=== PATIENT | female | born 1960 | race Caucasian/White ===

== ENCOUNTER 2019-02-15 09:49 | Inpatient (IN) | payer OTHER ==
[~2019-02-15] VITALS: Ht 172.7 cm; Wt 72.7 kg
--- NOTE | ~2019-02-15 | PROC ---
[address] [address] PROCEDURE REPORT Name: EDIE RAPHAEL Room: [address] IN ..#: [id number] Admission: 02/15/19 Attend Phys: Darrian Beltran MD Discharge: 02/17/19 Date of : 62 Report #: [id number] THIS REPORT FOR: //name// For GI report, please see the Provation report in Perceptive 7 content. By: [id number] Records Staff MEGHANA /STEPHEN
[2019-02-15 09:53] VITALS: BP 150/78
[2019-02-15] MEDS ORDERED: KLOR-CON 1010 MEQ PO (09:58)
[2019-02-15] MEDS ORDERED: ESTRADIOL 1 MG T1 M1 PO (09:58)
[2019-02-15] MEDS ORDERED: ZANAFLEX2 M1 PO (09:59)
[2019-02-15] MEDS ORDERED: NORCO 10-325 T1 EACH PO (09:59)
[2019-02-15 10:14] LABS: ABSOLUTE BASOPHILS 0.1 thou/uL (0.0-0.2); ABSOLUTE EOSINOPHILS 0.1 thou/uL (0.0-0.7); ABSOLUTE LYMPHOCYTES 4.4 thou/uL (0.8-5.3); ABSOLUTE MONOCYTES 1.2 thou/uL (0.0-1.2); ABSOLUTE NEUTROPHILS 8.9 thou/uL (1.6-8.1); BASOPHILS 0.4 %; EOSINOPHILS 0.6 %; HEMATOCRIT 30.8 % (37.0-47.0); HEMOGLOBIN 10.4 gm/dL (12.0-15.0); LYMPHOCYTES 29.7 %; MCHC 33.8 g/dL (28.0-37.0); MCV 94.7 fL (80.0-100.0); MONOCYTES 8.4 %; MPV 8.2 fl. (7.2-11.1); NUCLEATED RBCS 0 /100WBC; PLATELET COUNT* 337 thou/uL (150-400); POLYS 60.9 %; RBC 3.25 mil/uL (4.20-5.00); RDW-CV 13.1 % (10.5-14.5); WBC 14.7 thou/uL (4.0-11.0)
[2019-02-15 10:27] LABS: ALBUMIN 4.3 g/dL (3.4-5.0); ALKALINE PHOSPHATASE 52 U/L (46-116); ANION GAP 11 mmol/L (7-16); BUN 42 mg/dL (7-18); CALCIUM 9.1 mg/dL (8.5-10.1); CHLORIDE 102 mmol/L (98-107); CO2 26 mmol/L (21-32); CREATININE 0.9 mg/dL (0.6-1.3); GLUCOSE 153 mg/dL (70-99); LIPASE 97 U/L (73-393); POTASSIUM 3.6 mmol/L (3.5-5.1); SGOT 12 U/L (15-37); SGPT 18 U/L (30-65); SODIUM 139 mmol/L (136-145); TOTAL BILIRUBIN 0.2 mg/dL (<0.1-1.0); TOTAL PROTEIN 7.7 g/dL (6.4-8.2); TROPONIN-I LEVEL <0.06 ng/mL (<0.06)
[2019-02-15 10:41] LABS: APTT 20.8 Seconds (25.0-31.3); PROTIME 10.1 Seconds (9.20-11.50)
[2019-02-15 12:06] VITALS: BP 129/67
[2019-02-15 12:35] VITALS: BP 119/68
[2019-02-15 14:26] LABS: HEMATOCRIT 25.4 % (37.0-47.0); HEMOGLOBIN 8.6 gm/dL (12.0-15.0)
[2019-02-15 15:23] VITALS: BP 146/73
--- NOTE | 2019-02-15 15:31 | EKG ---
[place] [address] ELECTROCARDIOGRAM REPORT Name: SANDRANANCIEEDIE Lynn Room: [address] ADM IN 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
[2019-02-15 16:17] LABS: HEMATOCRIT 23.8 % (37.0-47.0)
[2019-02-15 18:12] LABS: URINE BILIRUBIN NEGATIVE (Negative); URINE BLOOD TRACE (Negative); URINE CLARITY CLEAR; URINE COLOR YELLOW; URINE GLUCOSE-RANDOM NEGATIVE (Negative); URINE KETONES NEGATIVE (Negative); URINE LEUKOCYTES-REFLEX NEGATIVE (Negative); URINE NITRITE-REFLEX NEGATIVE (Negative); URINE PROTEIN NEGATIVE (Negative); URINE UROBILINOGEN 0.2 E.U./dl (0.2-1.0)
[2019-02-15 20:00] VITALS: BP 128/56
[2019-02-15 20:32] LABS: ABSOLUTE BASOPHILS 0.1 thou/uL (0.0-0.2); ABSOLUTE EOSINOPHILS 0.1 thou/uL (0.0-0.7); ABSOLUTE LYMPHOCYTES 3.1 thou/uL (0.8-5.3); ABSOLUTE MONOCYTES 0.8 thou/uL (0.0-1.2); ABSOLUTE NEUTROPHILS 6.6 thou/uL (1.6-8.1); BASOPHILS 0.5 %; EOSINOPHILS 0.8 %; HEMATOCRIT 21.2 % (37.0-47.0); HEMOGLOBIN 7.1 gm/dL (12.0-15.0); MCH 31.8 pg (26.0-34.0); MCHC 33.5 g/dL (28.0-37.0); MCV 94.9 fL (80.0-100.0); MONOCYTES 7.8 %; MPV 8.3 fl. (7.2-11.1); NUCLEATED RBCS 0 /100WBC; POLYS 61.9 %; RBC 2.24 mil/uL (4.20-5.00); RDW-CV 12.8 % (10.5-14.5); WBC 10.7 thou/uL (4.0-11.0)
[2019-02-15 20:38] LABS: CALCIUM 8.2 mg/dL (8.5-10.1); CREATININE 0.7 mg/dL (0.6-1.3); POTASSIUM 3.5 mmol/L (3.5-5.1)
[2019-02-15 20:40] LABS: PLATELET COUNT* 219 thou/uL (150-400)
[2019-02-16 00:06] VITALS: BP 103/49
[2019-02-16 03:37] VITALS: BP 111/29; BP 119/60
[2019-02-16 05:02] LABS: MCH 32.4 pg (26.0-34.0); MCHC 34.2 g/dL (28.0-37.0); MCV 94.7 fL (80.0-100.0); MPV 8.5 fl. (7.2-11.1); RBC 1.96 mil/uL (4.20-5.00); WBC 6.8 thou/uL (4.0-11.0)
[2019-02-16 05:23] LABS: CALCIUM 8.1 mg/dL (8.5-10.1); CREATININE 0.6 mg/dL (0.6-1.3); MAGNESIUM 1.9 mg/dL (1.8-2.4); POTASSIUM 3.7 mmol/L (3.5-5.1)
[2019-02-16 05:46] LABS: HEMOGLOBIN 6.3 gm/dL (12.0-15.0)
[2019-02-16 05:47] LABS: HEMATOCRIT 18.5 % (37.0-47.0)
[2019-02-16 12:04] LABS: ABSOLUTE EOSINOPHILS 0.1 thou/uL (0.0-0.7); ABSOLUTE LYMPHOCYTES 2.3 thou/uL (0.8-5.3); ABSOLUTE MONOCYTES 0.7 thou/uL (0.0-1.2); ABSOLUTE NEUTROPHILS 4.5 thou/uL (1.6-8.1); BASOPHILS 0.5 %; EOSINOPHILS 0.7 %; HEMATOCRIT 24.5 % (37.0-47.0); HEMOGLOBIN 8.4 gm/dL (12.0-15.0); LYMPHOCYTES 29.9 %; MCH 31.9 pg (26.0-34.0); MCHC 34.4 g/dL (28.0-37.0); MCV 92.5 fL (80.0-100.0); MONOCYTES 8.9 %; MPV 7.7 fl. (7.2-11.1); NUCLEATED RBCS 0 /100WBC; PLATELET COUNT* 198 thou/uL (150-400); RBC 2.65 mil/uL (4.20-5.00); RDW-CV 14.3 % (10.5-14.5); WBC 7.6 thou/uL (4.0-11.0)
[2019-02-16 12:19] LABS: CALCIUM 8.5 mg/dL (8.5-10.1); CREATININE 0.6 mg/dL (0.6-1.3); POTASSIUM 3.6 mmol/L (3.5-5.1)
[2019-02-16 12:21] VITALS: BP 142/67
[2019-02-16 14:13] LABS: HEMATOCRIT 23.2 % (37.0-47.0)
[2019-02-16 15:55] VITALS: BP 152/83
[2019-02-16 17:57] LABS: HEMATOCRIT 24.5 % (37.0-47.0); HEMOGLOBIN 8.5 gm/dL (12.0-15.0)
[2019-02-16 20:00] VITALS: BP 149/53
[2019-02-17] VITALS: BP 120/50
[2019-02-17 04:00] VITALS: BP 126/63
[2019-02-17 07:23] LABS: ABSOLUTE EOSINOPHILS 0.1 thou/uL (0.0-0.7); ABSOLUTE LYMPHOCYTES 2.3 thou/uL (0.8-5.3); ABSOLUTE MONOCYTES 0.8 thou/uL (0.0-1.2); ABSOLUTE NEUTROPHILS 5.8 thou/uL (1.6-8.1); BASOPHILS 0.5 %; EOSINOPHILS 1.3 %; HEMATOCRIT 24.5 % (37.0-47.0); HEMOGLOBIN 8.4 gm/dL (12.0-15.0); LYMPHOCYTES 25.6 %; MCH 31.9 pg (26.0-34.0); MCHC 34.5 g/dL (28.0-37.0); MCV 92.5 fL (80.0-100.0); MONOCYTES 8.9 %; MPV 7.8 fl. (7.2-11.1); NUCLEATED RBCS 0 /100WBC; PLATELET COUNT* 204 thou/uL (150-400); POLYS 63.7 %; RBC 2.64 mil/uL (4.20-5.00); RDW-CV 14.1 % (10.5-14.5); WBC 9.1 thou/uL (4.0-11.0)
[2019-02-17 07:36] LABS: CALCIUM 8.8 mg/dL (8.5-10.1); CREATININE 0.6 mg/dL (0.6-1.3); POTASSIUM 3.2 mmol/L (3.5-5.1)
[2019-02-17 08:00] VITALS: BP 135/56
[2019-02-17] MEDS ORDERED: VOLTAREN GEL 1100 G1 TOP (09:19)
[2019-02-17] MEDS ORDERED: NORCO 10-325 T1 EACH PO (09:19)
[2019-02-17] MEDS ORDERED: OMEPRAZOLE40 MG PO (09:19)
[2019-02-17 09:45] VITALS: BP 135/56
--- NOTE | 2019-02-17 15:06 | PATH ---
[address] [address] PATHOLOGY RPT PROCEDURE Name: EDIE GARRIDO Room: [address] IN [facility]#: [id number] Admission: 02/15/19 Date of : 62 Discharge: Report #: [id number] Path Case #: [id number] [facility] Accession Number: [id number] . 01 Material submitted: . stomach - ANTRAL BIOPSY . 01 Clinical history: . Rule out H. pylori, gastric ulcers x4 . 02 Diagnosis: Antral biopsy: - Mild nonspecific chronic antral gastritis, negative for Helicobacter pylori organisms and dysplasia. (VAHE:diandra; 02/17/2019) MBR/02/17/2019 . 02 Electronically signed: . Vikas Cochran MD, Pathologist NPI- [id number] . 01 Gross description: . Received in formalin labeled "Patricia Garridoly, antral BX, rule out H. pylori," is a single segment of ortega soft tissue measuring 0.5 cm in maximum dimension. The specimen is entirely submitted in cassette A1. (TSD; 02/16/2019) TOB/TOB . 02 Pathologist provided ICD-10: K29.50 . 02 CPT . 861424 Specimen Comment: A courtesy copy of this report has been sent to Specimen Comment: [phone], , . Specimen Comment: Report sent to ,DR LANDIS / DR TORO Performed at: [address] [facility] [address], [place], [place] [id number] MD Manuel Rdz MD Phone: [phone] Performed at: [address] [facility] [address] [facility] , [place], [place] [id number] MD Vikas Cochran MD Phone: [phone]
[2019-02-17 16:00] VITALS: BP 110/54
--- NOTE | 2019-02-22 15:46 | CON ---
[address] [address] CONSULTATION Name: EDIE RAPHAEL Room: [address] IN M.R.#: [id number] Admission: 02/15/19 Attend Phys: Washington Beltran MD Discharge: 02/17/19 Date of : 62 Report #: [id number] THIS REPORT FOR: //name// CC: WASHINGTON Beltran Natalie Everardo DATE OF SERVICE: 02/15/2019 REFERRING PHYSICIAN: Washington Beltran MD. REASON FOR CONSULTATION: 1. Probable GI bleed. 2. Melena associated with lightheadedness and dizziness compatible with orthostasis -- suspect upper gastrointestinal bleed. 3. Recent shoulder injury from lifting a patient, requiring the use of nonsteroidals in the form of ibuprofen and recently a Medrol Dosepak. 4. with no previous colonoscopy in the past. 5. Recent shoulder injury secondary to the same requiring treatment. RECOMMENDATIONS: 1. At the present time, the patient appears to be hemodynamically stable to undergo endoscopic evaluation. We will proceed with upper endoscopy tomorrow and make further recommendations thereafter. In the interim, we will continue the patient on Protonix through IV. We will check laboratory test to ensure she is not iron deficient as this may have been something that has been going on for a while. 2. Eventually, she will need a colonoscopy as well, but it may be in a few months if we find ulcers that need to repeat upper endoscopy to evaluate for healing. I have discussed the plans with the patient as well, and she is agreeable to the same. 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 She has also had some mild dyspepsia. She denies any dysphagia, odynophagia, postprandial pain or problems normally with her bowels or bowel frequency. She had recently injured her shoulder after lifting a heavy patient and started taking ibuprofen 800 mg 3 times daily for the last 10 days. When she was not getting better, she was placed on a Medrol Dosepak, and this may have tipped everything over. She has never had any previous studies of her upper and lower GI tract in the past. She has otherwise been extremely healthy. ALLERGIES: [place] [address] CONSULTATION Name: EDIE RAPHAEL Room: [address]#: [id number] Admission: 02/15/19 Attend Phys: Washington Beltran MD Discharge: 02/17/19 Date of : 62 Report #: [id number] MEDICATIONS: At home are estradiol, potassium, [place] recently and tizanidine. PAST SURGICAL HISTORY: Remarkable for previous breast reduction. She had hysterectomy as well. SOCIAL HISTORY: The patient does smoke cigarettes. She does not drink any alcohol. No recreational drugs. PHYSICAL EXAMINATION: GENERAL: A pleasant 58-year-old white female who is awake and alert. CARDIOPULMONARY: Revealed a regular rate and rhythm. LUNGS: Clear. ABDOMEN: Soft and not tender. No rebound or guarding noted. LABORATORY DATA: From admission revealed white count 14.7, hemoglobin 10.4, platelet count 337,000. Her MCV is 94.7 and RDW 13.1. Her sodium 139, potassium 3.6, chloride 102, bicarbonate 26, BUN 42, creatinine 0.9. Her ratio is close to 40. Total bilirubin 0.2, alkaline phosphatase 52, AST is 12, ALT is 18. Her albumin is 4.3. With hydration, her hemoglobin has come down to 8.0 [address] of [address] scan of the abdomen and pelvis revealed moderate amount of stool within the colon with no evidence to suggest active bleeding. DISCUSSION: At the present time, the patient has had some GI bleeding with melena. She has been taking lot of nonsteroidals and this likely is the source for her bleeding. We will proceed with upper endoscopy tomorrow and make further recommendations thereafter. I have discussed the plans with the patient as well and she is agreeable to the same. <ELECTRONICALLY SIGNED> By: Oliver Reyez DO 02/22/19 1546 [id number] Reyez DO /nt
== END 2019-02-17 17:07 | disposition home or self-care (01) | DRG 378 ==
LOC: M.ERS 09:49 → M.2W 11:32 → M.TBA-ER 11:32 → M.2W 11:32
PROVIDERS: Family Medicine; Internal Medicine Gastroenterology; ADMIT Internal Medicine
PROC: 3E0U33Z Introduction of Anti-inflammatory into Joints, Percutaneous Approach (ICD-10-PCS; principal; 2019-02-15)
PROC: 0DB68ZX Excision of Stomach, Via Natural or Artificial Opening Endoscopic, Diagnostic (ICD-10-PCS; 2019-02-16)
DX: K27.4 Chronic or unspecified peptic ulcer, site unspecified, with hemorrhage (principal); D62 Acute posthemorrhagic anemia; M75.42 Impingement syndrome of left shoulder; E86.9 Volume depletion, unspecified; M75.22 Bicipital tendinitis, left shoulder; T39.395A Adverse effect of other nonsteroidal anti-inflammatory drugs [NSAID], initial encounter; M75.102 Unspecified rotator cuff tear or rupture of left shoulder, not specified as traumatic; Y92.89 Other specified places as the place of occurrence of the external cause; Z90.710 Acquired absence of both cervix and uterus; Z79.1 Long term (current) use of non-steroidal anti-inflammatories (NSAID); Z79.899 Other long term (current) drug therapy

== ENCOUNTER → 2019-04-12 | Outpatient (CLI) | payer OTHER ==
[~2019-04-12] MED LIST: CENTRUM SILVER1 EAC4 PO; ESTRADIOL 1 MG T1 M1 PO; GABAPENTIN 100100 MG PO; KLOR-CON 1010 MEQ PO; NORCO 10-325 T1 EACH PO; OMEPRAZOLE40 MG PO; VOLTAREN GEL 1100 G1 TOP; ZANAFLEX2 M1 PO
== END ==
LOC: M.PC 10:00 → M.RAD 10:00 → M.PC 11:20
DX: M54.16 Radiculopathy, lumbar region (principal); M25.512 Pain in left shoulder; R53.1 Weakness; M81.0 Age-related osteoporosis without current pathological fracture; E04.1 Nontoxic single thyroid nodule; G89.29 Other chronic pain; M54.42 Lumbago with sciatica, left side; Z90.710 Acquired absence of both cervix and uterus; Z79.899 Other long term (current) drug therapy

== ENCOUNTER → 2019-04-26 | Outpatient (CLI) | payer OTHER ==
[~2019-04-26] MED LIST changes: +LIDOCAINE1 EACH TRANSDERM; +VOLTAREN GEL 1100 G2 TOP
== END | disposition home or self-care (01) ==
LOC: M.PC 04:50
DX: M47.816 Spondylosis without myelopathy or radiculopathy, lumbar region (principal); M51.36 Other intervertebral disc degeneration, lumbar region; M43.16 Spondylolisthesis, lumbar region; M53.3 Sacrococcygeal disorders, not elsewhere classified; Z90.710 Acquired absence of both cervix and uterus; Z98.890 Other specified postprocedural states; Z79.891 Long term (current) use of opiate analgesic

== ENCOUNTER → 2019-05-03 | Outpatient (CLI) | payer OTHER | END | disposition home or self-care (01) | LOC: M.PC 04:37 | DX: M47.816 Spondylosis without myelopathy or radiculopathy, lumbar region (principal); M51.36 Other intervertebral disc degeneration, lumbar region; M43.16 Spondylolisthesis, lumbar region; M53.3 Sacrococcygeal disorders, not elsewhere classified; M25.551 Pain in right hip; M75.41 Impingement syndrome of right shoulder; M25.511 Pain in right shoulder; M54.12 Radiculopathy, cervical region; F17.210 Nicotine dependence, cigarettes, uncomplicated; Z90.710 Acquired absence of both cervix and uterus; Z98.890 Other specified postprocedural states; Z79.891 Long term (current) use of opiate analgesic; Z79.899 Other long term (current) drug therapy; Z87.19 Personal history of other diseases of the digestive system ==

== ENCOUNTER → 2019-05-24 | Outpatient (CLI) | payer OTHER | END | disposition home or self-care (01) | LOC: M.PC 08:23 | DX: M79.18 Myalgia, other site (principal); M51.36 Other intervertebral disc degeneration, lumbar region; M50.10 Cervical disc disorder with radiculopathy, unspecified cervical region; M47.896 Other spondylosis, lumbar region; M43.16 Spondylolisthesis, lumbar region; M75.41 Impingement syndrome of right shoulder; M53.3 Sacrococcygeal disorders, not elsewhere classified; M81.0 Age-related osteoporosis without current pathological fracture; F17.210 Nicotine dependence, cigarettes, uncomplicated; Z98.890 Other specified postprocedural states; Z79.891 Long term (current) use of opiate analgesic; Z79.899 Other long term (current) drug therapy; Z90.710 Acquired absence of both cervix and uterus ==